=== PATIENT | female | born 1975 | race American Indian/Alaskan Native ===

== ENCOUNTER 2017-10-05 10:44 | Emergency (ER) | payer OTHER ==
[2017-10-05 10:52] VITALS: BP 138/89
--- NOTE | 2017-10-05 11:30 | Emergency Department Report ---
ED Female HPI - General Chief complaint: Urogenital-Female Stated complaint: VAGINAL BURNING Time Seen by Provider: 10/05/17 11:28 Source: patient Mode of arrival: Ambulatory Limitations: No Limitations - History of Present Illness Initial comments: This is a 42-year-old female nontoxic, well nourished in appearance, no acute signs of distress presents to the ED with c/o of vaginal discharge and dysuria x1 day. Patient stated that he had unprotective sex last week and then 1 day ago developed these symptoms. Patient stated vaginal discharge is yellow and white in color without foul odor. Patient denies hematuria, back pain, fever, chills, nausea, vomiting, abdominal pain, numbness, tingling, chest pain or shortness of breath. Patient denies any allergies or significant past medical history. Patient stated that she is concerned about STD and would like to be treated empirically. MD Complaint: vaginal discharge, dysuria -: days(s) (1) Location: labia Radiation: non-radiating Severity: mild Severity scale (0 -10): 8 Quality: burning Consistency: constant Improves with: none Worsens with: none Are you Now?: No Last Menstrual Period: 09/15/17 EDC: 06/22/18 Associated Symptoms: vaginal discharge, dysuria. denies: vaginal bleeding, abdominal pain, nausea/vomiting, fever/chills, headaches, loss of appetite, hematuria, rash, seizure, shortness of breath, syncope, weakness - Related Data Previous Rx's Medication Instructions Recorded Last Taken Type metroNIDAZOLE [Flagyl] 500 mg PO Q12HR #14 tab 10/05/17 Unknown Rx Allergies Allergy/AdvReac Type Severity Reaction Status Date / Time No Known Allergies Allergy Unverified 10/05/17 10:48 ED Review of Systems ROS: Stated complaint: VAGINAL BURNING Other details as noted in HPI Constitutional: denies: chills, fever Eyes: denies: eye pain, eye discharge, vision change ENT: denies: ear pain, throat pain Respiratory: denies: cough, shortness of breath, wheezing Cardiovascular: denies: chest pain, palpitations Endocrine: no symptoms reported Gastrointestinal: denies: abdominal pain, nausea, diarrhea Genitourinary: dysuria, discharge. denies: urgency Musculoskeletal: denies: back pain, joint swelling, arthralgia Skin: denies: rash, lesions Neurological: denies: headache, weakness, paresthesias Psychiatric: denies: anxiety, depression Hematological/Lymphatic: denies: easy bleeding, easy bruising ED Past Medical Hx - Past Medical History Previous Medical History?: No - Surgical History Past Surgical History?: Yes Additional Surgical History: , rectal tissue repair - Social History Smoking Status: Never Smoker Substance Use Type: Alcohol - Medications Home Medications: Home Medications Medication Instructions Recorded Confirmed Last Taken Type metroNIDAZOLE [Flagyl] 500 mg PO Q12HR #14 tab 10/05/17 Unknown Rx ED Physical Exam - General Limitations: No Limitations General appearance: alert, in no apparent distress - Head Head exam: Present: atraumatic, normocephalic - Eye Eye exam: Present: normal appearance Pupils: Present: normal accommodation - ENT ENT exam: Present: normal exam, mucous membranes moist - Neck Neck exam: Present: normal inspection, full ROM. Absent: tenderness, meningismus, lymphadenopathy - Respiratory Respiratory exam: Present: normal lung sounds bilaterally. Absent: respiratory distress, wheezes, rales, rhonchi, stridor - Cardiovascular Cardiovascular Exam: Present: regular rate, normal rhythm, normal heart sounds. Absent: irregular rhythm, systolic murmur, diastolic murmur, rubs, gallop - GI/Abdominal GI/Abdominal exam: Present: soft, normal bowel sounds. Absent: distended, tenderness, guarding, rebound, rigid, diminished bowel sounds - Rectal Rectal exam: Present: deferred - External exam: Present: normal external exam, other (chaperoned Radha present during exam). Absent: erythema, swelling, lesions, lacerations, ecchymosis Speculum exam: Present: normal speculum exam, cervical discharge, other ( chaperoned Radha present during exam). Absent: erythema, vaginal discharge, vaginal bleeding, foreign body Bi-manual exam: Present: normal bi-manual exam, other (chaperoned Radha present during exam). Absent: cervical motion tendernes, adnexal tenderness, adnexal mass, uterine enlargement, uterine tenderness - Extremities Exam Extremities exam: Present: normal inspection, full ROM, normal capillary refill - Back Exam Back exam: Present: normal inspection, full ROM. Absent: tenderness, CVA tenderness (R), CVA tenderness (L), muscle spasm, paraspinal tenderness, vertebral tenderness, rash noted - Neurological Exam Neurological exam: Present: alert, oriented X3, normal gait - Psychiatric Psychiatric exam: Present: normal affect, normal mood - Skin Skin exam: Present: warm, dry, intact, normal color. Absent: rash ED Course Vital Signs 10/05/17 10:48 Temperature 98.5 F Pulse Rate 96 H Respiratory 16 Rate Blood Pressure 138/89 O2 Sat by Pulse 97 Oximetry - Reevaluation(s) Reevaluation #1: 10/05/17 12:13 Patient is speaking in full sentences with no signs of distress noted. ED Medical Decision Making - Medical Decision Making This is a 42-year-old female that presents with BV. Patient is stable and was examined by me. A UA, wet prep and gonorrhea chlamydia obtained. Upon examination patient does not have any abdominal pain or back pain. Patient was instructed to return in 3 days to obtain gonorrhea and chlamydia results. Patient stated that she is not concerned about gonorrhea chlamydia and would like not to be treated empirically. Patient wanted to be treated empircally for STD so patient received Azith and rocephin in the ED. Patient was instructed not to consume any alcohol while taking Flagyl. Patient was instructed to Follow-up with a primary care doctor in 3-5 days or if symptoms worsen and continue return to emergency room as soon as possible. At time of discharge, the patient does not seem toxic or ill in appearance. No acute signs of distress noted. Patient agrees to discharge treatment plan of care. No further questions noted by the patient. Critical care attestation.: If time is entered above; I have spent that time in minutes in the direct care of this critically ill patient, excluding procedure time. ED Disposition Clinical Impression: Possible exposure to STD, Bacterial vaginosis Disposition: DC-01 TO HOME OR SELFCARE Is pt being admited?: No Does the pt Need Aspirin: No Condition: Stable Instructions: Safe Sex (ED), Bacterial Vaginosis (ED), Metronidazole (By mouth) Additional Instructions: Follow-up with a primary care doctor in 3-5 days or if symptoms worsen and continue return to emergency room as soon as possible. Do not consume any alcohol while taking Flagyl Prescriptions: metroNIDAZOLE [Flagyl] 500 mg PO Q12HR #14 tab Referrals: PRIMARY CARE, [Primary Care Provider] - 3-5 Days PERRY ANTOINE MD [Staff Physician] - 3-5 Days [facility] [Outside] - 3-5 Days [facility] [Outside] - 3-5 Days Forms: Work/School Release Form(ED)
[2017-10-05 12:20] LABS: HCG Qualitative,Urine Negative (Negative)
[2017-10-05 12:22] LABS: Bilirubin,Urine NEG (Negative); Blood,Urine NEG (Negative); Color,Urine Yellow (Yellow); Mucus,Urine 1+ /HPF; Protein,Urine <15 mg/dL mg/dL (Negative); Urobilinogen,Urine < 2.0 mg/dL (<2.0)
[2017-10-05] MEDS ORDERED: XYLOCAINE 1% MPF 5 mL INFILTRATI ONE (12:34)
[2017-10-05] MEDS ORDERED: ZITHROMAX PO ONE (12:34)
[2017-10-05] MEDS ORDERED: ROCEPHIN IM ONE (12:34)
== END 2017-10-05 13:06 | disposition home or self-care (01) ==
LOC: ED 10:44
DX: N76.0 Acute vaginitis (principal)
CPT/HCPCS: 81001; 81025; 87086; 87210; 87591; 96372; 99284; J0696

== ENCOUNTER 2019-03-12 01:15 | Emergency (ER) | payer OTHER ==
[2019-03-12 01:24] VITALS: BP 140/85
[2019-03-12 01:56] LABS: Basophils # (Auto) 0.1 K/mm3 (0.0-0.1); Basophils % (Auto) 0.6 % (0.0-1.8); Eosinophils # (Auto) 0.1 K/mm3 (0.0-0.4); Eosinophils % (Auto) 1.7 % (0.0-4.3); Hematocrit 37.2 % (30.3-42.9); Hemoglobin 12.7 gm/dl (10.1-14.3); Lymphocytes % (Auto) 34.6 % (13.4-35.0); Mean Corpuscular HGB Conc 34 % (30-34); Mean Corpuscular Volume 81 fl (79-97); Monocytes # (Auto) 0.5 K/mm3 (0.0-0.8); Monocytes % (Auto) 5.2 % (0.0-7.3); Platelet Count 241 K/mm3 (140-440); Red Blood Count 4.62 M/mm3 (3.65-5.03); Red Cell Distribution Width 12.8 % (13.2-15.2)
[2019-03-12 02:08] LABS: Alanine Aminotransferase 6 units/L (7-56); BUN/Creatinine Ratio 21; Blood Urea Nitrogen 17 mg/dL (7-17); Calcium 8.5 mg/dL (8.4-10.2); Hemolysis Index 2
[2019-03-12 03:29] LABS: Bilirubin,Urine NEG (Negative); Blood,Urine NEG (Negative); Color,Urine Straw (Yellow); Protein,Urine <15 mg/dL mg/dL (Negative); Urobilinogen,Urine < 2.0 mg/dL (<2.0)
--- NOTE | 2019-03-12 03:32 | Cat Scan Report ---
CT ABDOMEN AND PELVIS WITH CONTRAST INDICATION / CLINICAL INFORMATION: MAIN: RLQ Abdominal pain. RT FLANK PAIN. 100 ML OMNIPAQUE 300. TECHNIQUE: Axial CT images were obtained through the abdomen and pelvis after 100 mL Omnipaque [address] scans at this location are performed using CT dose reduction for ALARA by means of automated exposure control. COMPARISON: None available. FINDINGS: LOWER CHEST: No significant abnormality. LIVER: Mild nonspecific periportal edema. No focal hepatic lesion. BILIARY SYSTEM: No significant abnormality. PANCREAS: No significant abnormality. SPLEEN: The spleen is borderline in size, measuring up to 12.7 cm in craniocaudal dimension. ADRENALS: A 1.1 cm low-attenuation nodule is seen in the left adrenal gland. KIDNEYS and URETERS: No significant abnormality. STOMACH / BOWEL: No significant abnormality. The appendix is normal. PERITONEUM: No free fluid. No free air. No fluid collection. LYMPH NODES: No significant adenopathy. VASCULAR STRUCTURES: No significant abnormality. URINARY BLADDER: No significant abnormality. REPRODUCTIVE ORGANS: Enlarged uterus with multiple fibroids. A dominant follicle/physiologic cyst is seen in the right ovary measuring up to 2.2 cm. ADDITIONAL FINDINGS: None. SKELETAL SYSTEM: No significant abnormality. IMPRESSION: 1. No acute process identified within the abdomen or pelvis to explain patient's abdominal pain. 2. Enlarged, fibroid uterus. 3. A 1.1 cm left adrenal nodule is incompletely characterized on contrast enhanced study, but in the absence of a known malignancy this is statistically a benign adenoma. Signer Name: Briana Parish MD Signed: 03/12/2019 3:28 AM Workstation Name: [id number]
--- NOTE | 2019-03-12 04:06 | Emergency Department Report ---
ED Abdominal Pain HPI - General Chief Complaint: Abdominal Pain Stated Complaint: SIDE PAIN Source: patient Mode of arrival: Ambulatory Limitations: No Limitations - History of Present Illness Initial Comments: Patient is a 43-year-old Afro-[place] female with no past medical history presents to the ED with complaint of acute onset persistent severe right lower quadrant pain for the last 2 days. Patient also complains of dysuria, nausea and vomiting intermittently. Patient denies dizziness, fever, chills, diarrhea, urinary frequency and urgency, low back pain, change in mental status, syncope, cough, chest pain or shortness of breath, vaginal bleeding, vaginal discharge or low back pain MD Complaint: abdominal pain, other (nausea and vomiting) -: Sudden, days(s) (2) Location: RLQ, suprapubic Radiation: RLQ, suprapubic Migration to: no migration Severity scale (0 -10): 10 Quality: cramping, aching, sharp Consistency: constant Improves With: nothing Worsens With: movement Associated Symptoms: denies other symptoms, nausea, vomiting. denies: diarrhea, fever, chills, constipation, dysuria, hematochezia, melena, anorexia, syncope Treatments Prior to Arrival: NSAIDs - Related Data Previous Rx's Medication Instructions Recorded Last Taken Type metroNIDAZOLE [Flagyl] 500 mg PO Q12HR #14 tab 10/05/17 Unknown Rx Nitrofurantoin Macrocrystal 100 mg PO BID #10 capsule 10/20/18 Unknown Rx [Macrodantin] Phenazopyridine [Pyridium] 200 mg PO TID #6 tab 10/20/18 Unknown Rx Ketorolac [Toradol] 10 mg PO Q8H PRN #20 tablet 03/12/19 Unknown Rx Ondansetron [Zofran Odt] 4 mg PO Q6HR PRN #15 tab.rapdis 03/12/19 Unknown Rx traMADol [Ultram] 50 mg PO Q6HR PRN #12 tablet 03/12/19 Unknown Rx Allergies Allergy/AdvReac Type Severity Reaction Status Date / Time No Known Allergies Allergy Verified 05/11/18 05:13 ED Review of Systems ROS: Stated complaint: SIDE PAIN Other details as noted in HPI Constitutional: denies: chills, fever Eyes: denies: eye pain, eye discharge, vision change ENT: denies: ear pain, throat pain Respiratory: denies: cough, shortness of breath, wheezing Cardiovascular: denies: chest pain, palpitations Endocrine: no symptoms reported Gastrointestinal: abdominal pain, nausea, vomiting. denies: diarrhea Genitourinary: denies: urgency, dysuria, discharge Musculoskeletal: denies: back pain, joint swelling, arthralgia Skin: denies: rash, lesions Neurological: denies: headache, weakness, paresthesias Psychiatric: denies: anxiety, depression Hematological/Lymphatic: denies: easy bleeding, easy bruising ED Past Medical Hx - Past Medical History Previous Medical History?: No - Surgical History Past Surgical History?: Yes Additional Surgical History: , rectal tissue repair - Social History Smoking Status: Never Smoker Substance Use Type: Marijuana - Medications Home Medications: Home Medications Medication Instructions Recorded Confirmed Last Taken Type metroNIDAZOLE [Flagyl] 500 mg PO Q12HR #14 tab 10/05/17 Unknown Rx Nitrofurantoin Macrocrystal 100 mg PO BID #10 capsule 10/20/18 Unknown Rx [Macrodantin] Phenazopyridine [Pyridium] 200 mg PO TID #6 tab 10/20/18 Unknown Rx Ketorolac [Toradol] 10 mg PO Q8H PRN #20 tablet 03/12/19 Unknown Rx Ondansetron [Zofran Odt] 4 mg PO Q6HR PRN #15 tab.rapdis 03/12/19 Unknown Rx traMADol [Ultram] 50 mg PO Q6HR PRN #12 tablet 03/12/19 Unknown Rx ED Physical Exam - General Limitations: No Limitations General appearance: alert, in no apparent distress - Head Head exam: Present: atraumatic, normocephalic, normal inspection - Eye Eye exam: Present: normal appearance, PERRL, EOMI Pupils: Present: normal accommodation - ENT ENT exam: Present: normal exam, normal orophraynx, mucous membranes moist, TM's normal bilaterally, normal external ear exam - Neck Neck exam: Present: normal inspection, full ROM - Respiratory Respiratory exam: Present: normal lung sounds bilaterally. Absent: respiratory distress, wheezes, rales, chest wall tenderness - Cardiovascular Cardiovascular Exam: Present: regular rate, normal rhythm, normal heart sounds. Absent: systolic murmur, diastolic murmur, rubs, gallop - GI/Abdominal GI/Abdominal exam: Present: soft, tenderness (RLQ, suprapubic), normal bowel sounds. Absent: guarding, rebound, hyperactive bowel sounds, hypoactive bowel sounds - Extremities Exam Extremities exam: Present: normal inspection, full ROM, normal capillary refill - Back Exam Back exam: Present: normal inspection, full ROM. Absent: CVA tenderness (L), muscle spasm, paraspinal tenderness, vertebral tenderness - Neurological Exam Neurological exam: Present: alert, oriented X3, CN II-XII intact, normal gait, reflexes normal - Psychiatric Psychiatric exam: Present: normal affect, normal mood - Skin Skin exam: Present: warm, dry, intact, normal color. Absent: rash ED Course Vital Signs 03/12/19 01:20 Temperature 98.1 F Pulse Rate 71 Respiratory 16 Rate Blood Pressure 140/85 [Right] O2 Sat by Pulse 98 Oximetry - Reevaluation(s) Reevaluation #1: 03/12/19 05:14 This is a 43-year-old female who presented to the ED with right lower quadrant a bdominal pain with nausea and vomiting for 2 days. In the ED, patient is alert and oriented 3 and is not in distress. Patient was treated for pain in the ED. Lab test results were reviewed and are all nonactionable including urinalysis. The abdomen pelvis CT scan with contrast shows no acute process identified within the abdomen or pelvis to explain patient's abdominal pain. There is however an enlarged fibroid uterus and 1.1 cm left adrenal nodule is incompletely characterized on contrast enhanced study, but in the absence of a known malignancy this is statistically a benign adenoma. On reevaluation, patient's pain is well-controlled with medications. Patient was discharged home on pain medications and was advised to follow-up with her [facility] physician or primary care physician in 5-7 days for reevaluation. Patient was also advised to return to the ED immediately if symptoms get worse. ED Medical Decision Making - Lab Data Result diagrams: 03/12/19 01:30 03/12/19 01:30 - Radiology Data Findings [facility] [address] [place] [address] Cat Scan Report Signed Patient: CATRACHO SAHNI MR#: [id number] : 1975 Acct:[id number] Age/Sex: 43 / F ADM Date: 03/12/19 Loc: ED Attending Dr: Ordering Physician: SUBHASH MANUEL Date of Service: 03/12/19 Procedure(s): CT abdomen pelvis w con Accession Number(s): [id number] cc: SUBHASH MANUEL CT ABDOMEN AND PELVIS WITH CONTRAST INDICATION / CLINICAL INFORMATION: MAIN: RLQ Abdominal pain. RT FLANK PAIN. 100 ML OMNIPAQUE 300. TECHNIQUE: Axial CT images were obtained through the abdomen and pelvis after 100 mL Omnipaque [address] scans at this location are performed using CT dose reduction for ALARA by means of automated exposure control. COMPARISON: None available. FINDINGS: LOWER CHEST: No significant abnormality. LIVER: Mild nonspecific periportal edema. No focal hepatic lesion. BILIARY SYSTEM: No significant abnormality. PANCREAS: No significant abnormality. SPLEEN: The spleen is borderline in size, measuring up to 12.7 cm in craniocaudal dimension. ADRENALS: A 1.1 cm low-attenuation nodule is seen in the left adrenal gland. KIDNEYS and URETERS: No significant abnormality. STOMACH / BOWEL: No significant abnormality. The appendix is normal. PERITONEUM: No free fluid. No free air. No fluid collection. LYMPH NODES: No significant adenopathy. VASCULAR STRUCTURES: No significant abnormality. URINARY BLADDER: No significant abnormality. REPRODUCTIVE ORGANS: Enlarged uterus with multiple fibroids. A dominant follicle/physiologic cyst is seen in the right ovary measuring up to 2.2 cm. ADDITIONAL FINDINGS: None. SKELETAL SYSTEM: No significant abnormality. IMPRESSION: 1. No acute process identified within the abdomen or pelvis to explain patient's abdominal pain. 2. Enlarged, fibroid uterus. 3. A 1.1 cm left adrenal nodule is incompletely characterized on contrast enhanced study, but in the absence of a known malignancy this is statistically a benign adenoma. Signer Name: Briana Parish MD Signed: 03/12/2019 3:28 AM Workstation Name: [id number] Transcribed By: [facility] Dictated By: Briana Parish MD Electronically Authenticated By: Briana Parish MD Signed Date/Time: 03/12/19 0328 - Medical Decision Making This is a 43-year-old female who presented to the ED with right lower quadrant abdominal pain with nausea and vomiting for 2 days. In the ED, patient is alert and oriented 3 and is not in distress. Patient was treated for pain in the ED. Lab test results were reviewed and are all nonactionable including urinalysis. The abdomen pelvis CT scan with contrast shows no acute process identified within the abdomen or pelvis to explain patient's abdominal pain. There is however an enlarged fibroid uterus and 1.1 cm left adrenal nodule is incompletely characterized on contrast enhanced study, but in the absence of a known malignancy this is statistically a benign adenoma. On reevaluation, patient's pain is well-controlled with medications. Patient was discharged home on pain medications and was advised to follow-up with her [facility] physician or primary care physician in 5-7 days for reevaluation. Patient was also advised to return to the ED immediately if symptoms get worse. - Differential Diagnosis abdominal pain; Acute appendicitis; Acute UTI; Colitis Critical care attestation.: If time is entered above; I have spent that time in minutes in the direct care of this critically ill patient, excluding procedure time. ED Disposition Clinical Impression: Right ovarian cyst Abdominal pain Qualifiers: Abdominal location: right lower quadrant Qualified Code(s): R10.31 - Right lower quadrant pain Uterine fibroid Qualifiers: Uterine leiomyoma location: intramural Qualified Code(s): D25.1 - Intramural leiomyoma of uterus Disposition: TO HOME OR SELFCARE Is pt being admited?: No Does the pt Need Aspirin: No Condition: Stable Instructions: Ovarian Cyst (ED), Uterine Fibroids (ED), Abdominal Pain (ED) Additional Instructions: Take medication with food, drink plenty of fluids and follow-up with your primary care physician or the [facility] physician in 5-7 days for reevaluation. Return to the ED immediately if symptoms get worse. Prescriptions: Ketorolac [Toradol] 10 mg PO Q8H PRN #20 tablet PRN Reason: Pain traMADol [Ultram] 50 mg PO Q6HR PRN #12 tablet PRN Reason: Pain Ondansetron [Zofran Odt] 4 mg PO Q6HR PRN #15 tab.rapdis PRN Reason: Nausea Referrals: PRIMARY CARE, [Primary Care Provider] - 3-5 Days Time of Disposition: 04:37 Print Language: BULGARIAN
[2019-03-12] MEDS ORDERED: KETOROLAC 30 MG/1 ML INJ IV ONE (04:38)
[2019-03-12] MEDS ORDERED: ONDANSETRON 4 MG/2 ML INJ IV ONE (04:38)
== END 2019-03-12 06:28 | disposition home or self-care (01) ==
LOC: ED 01:15
DX: N83.201 Unspecified ovarian cyst, right side (principal); D25.9 Leiomyoma of uterus, unspecified; F12.10 Cannabis abuse, uncomplicated
CPT/HCPCS: 36415; 74177; 80053; 81001; 83690; 84703; 85025; 96374; 96375; 99284; J1885; J2405; Q9967

== ENCOUNTER 2020-10-01 19:37 | Emergency (ER) | payer OTHER ==
[2020-10-01 21:02] VITALS: BP 133/77
--- NOTE | 2020-10-01 21:06 | Emergency Department Report ---
Upper Extremity - [facility] Chief Complaint: Extremity Problem,Nontraumatic Stated Complaint: VACCINE COMPLICATIONS Time Seen by Provider: 10/01/20 21:01 Occurred When: 1 Day (Vaccinated yesterday) Mechanism: Other Severity: moderate Symptoms: Yes Pain with Movement, Yes Numbness, Yes Swelling, No Limited Range of Movement, No Laceration or Abrasion ED Review of Systems ROS: Stated complaint: VACCINE COMPLICATIONS Other details as noted in HPI Comment: All other systems reviewed and negative ED Past Medical Hx - Past Medical History Previous Medical History?: No - Surgical History Past Surgical History?: Yes Additional Surgical History: , rectal tissue repair - Social History Smoking Status: Never Smoker Substance Use Type: Alcohol, Marijuana - Medications Home Medications: Home Medications Medication Instructions Recorded Confirmed Last Taken Type metroNIDAZOLE [Flagyl] 500 mg PO Q12HR #14 tab 10/05/17 Unknown Rx Nitrofurantoin Macrocrystal 100 mg PO BID #10 capsule 10/20/18 Unknown Rx [Macrodantin] Phenazopyridine [Pyridium] 200 mg PO TID #6 tab 10/20/18 Unknown Rx Ketorolac [Toradol] 10 mg PO Q8H PRN #20 tablet 03/12/19 Unknown Rx Ondansetron [Zofran Odt] 4 mg PO Q6HR PRN #15 tab.rapdis 03/12/19 Unknown Rx traMADoL [Ultram] 50 mg PO Q6HR PRN #12 tablet 03/12/19 Unknown Rx Ketorolac [Toradol] 10 mg PO Q6H PRN #14 tablet 10/01/20 Unknown Rx Upper Extremity Exam - Exam General: Vital signs noted. No distress. Alert and acting appropriately. Head and Torso: No HEENT Abnormality, No Neck Tenderness, No Chest/Lungs Abnormality, No Abdominal Tenderness, No Back Tenderness Shoulder Exam: Yes Shoulder Tenderness (with mild swelling to the deltoid and tenderness to palpation. ), Yes Normal Range of Motion in Shoulder, No Clavicle Tenderness, No Shoulder Deformity, No AC Joint Tenderness Arm Exam: No Arm/Humerus Tenderness, No Arm Deformity Elbow: No Elbow Tenderness, No Normal Range of Motion in Elbow, No Elbow Deformity Forearm: No Forearm Tenderness, No Forearm Deformity, No Pain with Pronation, No Pain with Supination Wrist: Yes Normal ROM in Wrist, No Wrist Tenderness, No Wrist Deformity, No Snuffbox Tenderness, No Pain with Axial Thumb Compression Hand: Yes Normal ROM in Digit(s), No Hand Tenderness, No Hand Deformity, No Digit Tenderness, No Digit(s) Deformity, No Tendon Dysfunction CMS Exam: No Broken Skin, No Normal Distal Pulses, No Normal Capillary Refill, No Normal Distal Sensation Critical care attestation.: If time is entered above; I have spent that time in minutes in the direct care of this critically ill patient, excluding procedure time. ED Disposition Clinical Impression: Injection site reaction Disposition: TO HOME OR SELFCARE Is pt being admited?: No Does the pt Need Aspirin: No Condition: Stable Instructions: Post-Injection Inflammatory Reaction, How to Use Cold Therapy, [id number] Prescriptions: Ketorolac [Toradol] 10 mg PO Q6H PRN #14 tablet PRN Reason: Pain Referrals: PRIMARY CARE, [Primary Care Provider] - 3-5 Days
== END 2020-10-01 21:10 | disposition home or self-care (01) ==
LOC: ED 19:37
DX: T80.90XA Unspecified complication following infusion and therapeutic injection, initial encounter (principal); F12.90 Cannabis use, unspecified, uncomplicated; Z98.890 Other specified postprocedural states; Y92.89 Other specified places as the place of occurrence of the external cause
CPT/HCPCS: 99282

== ENCOUNTER 2021-11-11 22:37 | Emergency (ER) | payer OTHER ==
[2021-11-11 23:55] VITALS: BP 128/84
[2021-11-12 00:30] LABS: Basophils % (Auto) 0.5 % (0.0-1.8); Eosinophils # (Auto) 0.2 K/mm3 (0.0-0.4); Eosinophils % (Auto) 2.6 % (0.0-4.3); Hemoglobin 13.6 gm/dl (10.1-14.3); Lymphocytes # (Auto) 3.1 K/mm3 (1.2-5.4); Lymphocytes % (Auto) 36.8 % (13.4-35.0); Mean Corpuscular HGB Conc 34 % (30-34); Mean Corpuscular Volume 81 fl (79-97); Monocytes # (Auto) 0.4 K/mm3 (0.0-0.8); Monocytes % (Auto) 5.2 % (0.0-7.3); Platelet Count 267 K/mm3 (140-440); Red Blood Count 4.92 M/mm3 (3.65-5.03); Red Cell Distribution Width 12.9 % (13.2-15.2)
[2021-11-12 00:53] LABS: Alanine Aminotransferase 18 units/L (7-56); Albumin 4.1 g/dL (3.9-5); Blood Urea Nitrogen 17 mg/dL (7-17); Calcium 9.1 mg/dL (8.4-10.2); Hemolysis Index 14
[2021-11-12 01:02] LABS: BUN/Creatinine Ratio 24
[2021-11-12 05:01] LABS: Mucus,Urine 3+ /HPF
[2021-11-12 05:03] LABS: Color,Urine Straw (Yellow)
[2021-11-12 05:04] LABS: Bilirubin,Urine NEG (Negative); Blood,Urine NEG (Negative); PH,Urine 6.5 (5.0-7.0); Protein,Urine <15 mg/dL mg/dL (Negative); Urobilinogen,Urine < 2.0 mg/dL (<2.0)
== END 2021-11-11 23:00 | disposition left against medical advice (07) ==
LOC: ED 22:37
DX: M54.9 Dorsalgia, unspecified (principal); Z53.21 Procedure and treatment not carried out due to patient leaving prior to being seen by health care provider
CPT/HCPCS: 36415; 80053; 81001; 84703; 85025